=== PATIENT | female | born 1970 | race Caucasian/White ===

== ENCOUNTER → 2022-10-04 13:30 | Outpatient (BNVA) | payer OTHER, SELFPAY | PROVIDERS: PCP Physician Assistant Medical; Visit Provider Anesthesiology ==

== ENCOUNTER 2022-11-09 05:56 | Outpatient (REF) | payer OTHER, SELFPAY ==
--- NOTE | ~2022-11-09 | FL_ITS ---
EXAMINATION: XR FLUOROSCOPY WITH IMAGES CLINICAL INFORMATION: Sacrococcygeal disorders, not elsewhere classified COMPARISON: None available. TECHNIQUE: Fluoroscopy Supervised By: Dr. Castrejon. Fluoroscopy Time: 0.2 minutes. Cumulative Dose: 15.2 mGy. DAP: 0.265 Gycm2. Images: 2. FINDINGS: Images demonstrate needle placement and contrast injection of the bilateral sacroiliac joints FL/FL guidance in treatment room IMPRESSION: Fluoroscopy guidance for sacroiliac joint injection
== END 2022-11-09 05:57 | disposition home or self-care (01) ==
LOC: CF 05:56
PROVIDERS: Visit Provider Anesthesiology
DX: M46.1 Sacroiliitis, not elsewhere classified (principal); M53.3 Sacrococcygeal disorders, not elsewhere classified; M47.819 Spondylosis without myelopathy or radiculopathy, site unspecified; M96.1 Postlaminectomy syndrome, not elsewhere classified; E66.01 Morbid (severe) obesity due to excess calories
CPT/HCPCS: 27096; J2795; J3301; Q9965; Q9967

== ENCOUNTER → 2022-11-11 08:22 | Outpatient (BNVA) | payer OTHER, SELFPAY | PROVIDERS: PCP Physician Assistant Medical; Visit Provider Anesthesiology ==

== ENCOUNTER 2025-04-29 13:08 | Outpatient (REF) | payer OTHER, SELFPAY ==
[2025-04-29 15:22] LABS: Alanine Aminotransferase 34 U/L (0-31); Albumin Level 4.7 g/dL (3.5-5.0); Alkaline Phosphatase 89 U/L (39-117); Aspartate Amino Transferase 34 U/L (5-31); Lipase 23 U/L (8-78); Total Protein 7.3 g/dL (6.5-8.0)
[2025-04-29 15:38] LABS: Folate 8.0 ng/mL (> or = 4.0); Vitamin B12 219 pg/mL (200-900)
[2025-04-29 17:57] LABS: Free T4 (Free Thyroxine) 0.69 ng/dL (0.71-1.85)
[2025-05-03 11:43] LABS: Vitamin D 25-OH, D2 <4 ng/mL; Vitamin D 25-OH, D3 8 ng/mL; Vitamin D 25-OH, Total 8 ng/mL (30-100)
== END 2025-04-29 13:09 | disposition home or self-care (01) ==
LOC: HO.LAB 13:08
PROVIDERS: PCP Physician Assistant Medical; Visit Provider Nurse Practitioner Family
DX: Z12.11 Encounter for screening for malignant neoplasm of colon (principal); K59.1 Functional diarrhea; K21.9 Gastro-esophageal reflux disease without esophagitis; R10.13 Epigastric pain; R14.0 Abdominal distension (gaseous); R74.01 Elevation of levels of liver transaminase levels; E55.9 Vitamin D deficiency, unspecified; Z83.3 Family history of diabetes mellitus; Z13.1 Encounter for screening for diabetes mellitus
CPT/HCPCS: 36415; 80076; 82306; 82607; 82746; 83036; 83690; 84439; 84443; 86364

== ENCOUNTER 2025-04-29 13:08 | Outpatient (AMB) | payer OTHER, SELFPAY ==
--- NOTE | 2025-04-29 13:15 | MHC.OFFVIS ---
Vital Signs 04/29/25 13:26 Height 5 ft 2 in Weight 250 lb BMI 45.7 BP 146/84 H Blood Pressure Location Rt brachial Position Sitting Pulse 70 Pulse Source Pulse Oximeter Pulse Oximetry (%) 97 Oxygen Delivery Method Room Air Intake Visit Reasons: chronic diarrhea, colo screen Intake Note: New pt for initial eval of IBS + recall colo screening. Last colo 2014 w/ Dr. Chaudhry. Hyperplastic polypectomy. CC: C/O IBS - D related concerns. Pt reports having frequent BMs, diarrhea, gas + abd cramping. Pt also reports a hx of GERD but states that it has not bothered her recently and she does not take medication for it. She does report taking imodium during the week to allow her to attend work w/o severe GI episodes. [employer] Required: No Accompanied by: Self / Same As Patient Allergies cat dander (CAT) Allergy (Unknown, Verified 11/11/22 08:38) DIFF BREATHING, ASTHMA cortisone Allergy (Verified 11/11/22 08:38) Unknown HPI HPI chronic diarrhea, colo screen: Details: 55 year old? female with past medical history of asthma, and anxiety, GERD, hypertension is here today for pre colonoscopy screening.? Patient was sent to us by her PCP.? Colonoscopy in the past [address] Chaudhry. Patient reports postprandial diarrhea. Patient denies any cardiac or respiratory symptoms, however patient has a admitting counselor and she sees her in [place] Patient reports that she takes Imodium every day in order for her to make it through at work. Patient denies any melena, hematochezia. Denies any family history of CRC.? Patient also reports epigastric pain postprandially. Used to take PPI, currently is not taking any medications to help with reflux. Denies history of difficulty with sedation or anesthesia in the past.? No history of infectious? diseases like hepatitis A, B, C, HIV or tuberculosis.? Patient is not on any anticoagulation [facility] Medical History (Updated 05/12/25 @ 15:43 by Lindsay Gonzales [facility]-) Asthma Anxiety GERD (gastroesophageal reflux disease) HTN (hypertension) Morbid obesity Surgical History H/O colonoscopy History of cervical biopsy Review of Systems Const Denies weight gain and Denies weight loss ENT Reports no additional complaints, Denies dysphagia and Denies odynophagia Card Reports no additional complaints Resp Reports no additional complaints GI Reports abdominal pain, Denies belching, Denies melena, Reports bloating, Denies change in bowel habits, Denies dysphagia, Denies excessive flatus, Denies dyspepsia, Reports heartburn, Denies diarrhea, Reports loose stools, Denies nausea, Denies odynophagia and Denies vomiting Reports no additional complaints Musc Reports no additional complaints Neuro Reports no additional complaints Psych Reports no additional complaints Endo Reports no additional complaints Physical Exam Vital Signs: Last Vital Signs Pulse 70 04/29/25 13:26 BP 146/84 H 04/29/25 13:26 Pulse Ox 97 04/29/25 13:26 Oxygen Delivery Method Room Air 04/29/25 13:26 BMI result Body Mass Index 45.7 Const General: healthy appearing and no acute distress Nutritional Appearance: obese Orientation/consciousness: patient oriented x3 Resp Effort & Inspection: normal respiratory effort, able to speak in complete sentences, no tracheal deviation and symmetric chest movement Auscultation: clear to auscultation bilaterally Cardio Rate: regular rate GI Inspection: Yes normal to inspection, No distended and Yes obesity Palpation (GI): Soft to palpation, not firm, nontender and No hepatosplenomegaly present Auscultation: normal bowel sounds General: Yes no CVA tenderness Back/Spine/Pelvis Back: no CVA tenderness Skin General skin exam: elasticity normal, turgor normal and dry skin Neuro General: patient oriented x3 Psych Appearance: grossly normal Mental Status: mental status grossly normal Assessment & Plan Assessment & Plan (1) Screen for colon cancer: Code(s): Z12.11 - Encounter for screening for malignant neoplasm of colon (2) GERD (gastroesophageal reflux disease): Code(s): K21.9 - Gastro-esophageal reflux disease without esophagitis Category: Medical Qualifiers: Esophagitis presence: esophagitis presence not specified Qualified Code(s): K21.9 - Gastro-esophageal reflux disease without esophagitis (3) Diarrhea: Code(s): R19.7 - Diarrhea, unspecified Qualifiers: Diarrhea type: functional diarrhea Qualified Code(s): K59.1 - Functional diarrhea (4) Postprandial epigastric pain: Code(s): R10.13 - Epigastric pain (5) Postprandial abdominal bloating: Code(s): R14.0 - Abdominal distension (gaseous) Plan Patient denies any cardiac or respiratory symptoms.? Denies any issues with anesthesia in the past.? Patient reports postprandial diarrhea. Patient was encouraged to try [id number] fiber with pre and probiotic. Patient will be also sent for upper endoscopy. Patient reports epigastric pain postprandially in all occasional reflux. Will check thyroid, liver panel, vitamin-D, B12, folate, A1c, lipase and transglutaminase. Patient will start taking pantoprazole daily. Patient may take sucralfate at bedtime. No history infectious diseases in the past or present.? Not on any anticoagulation therapy.? No family history of colon cancer..? Patient denies melena, hematochezia, unintentional weight loss or ribbon like stools.? Discussed at length the pre-procedure,? prep, diet & medications as well as what to expect prior, during and after the procedure.?? Stressed the importance of good bowel prep.? Recommended the use of Vaseline or Calmoseptine OTC & baby wipes with bowel movements to promote comfort.? ?Patient verbalizes understanding and agrees to plan of care.? She was given the opportunity to ask questions and all questions answered.? We will see her after the procedure.? Patient sees admitting counselor in [place] phone number [phone] Albert Casanova MD Orders: Orders TSH reflex Free T4 04/29/25 K59.00 - Constipation, unspecified Liver Panel 04/29/25 R74.01 - Elevation of levels of liver transaminase levels Vitamin D 25-OH (D2 and D3) 04/29/25 E55.9 - Vitamin D deficiency, unspecified Hemoglobin A1c 04/29/25 Z83.3 - Family history of diabetes mellitus Transglutaminase IgA 04/29/25 R10.9 - Unspecified abdominal pain Lipase 04/29/25 R10.9 - Unspecified abdominal pain Vitamin B12 and Folate 04/29/25 R19.7 - Diarrhea, unspecified Referrals GI Procedure Notification Z12.11 - Encounter for screening for malignant neoplasm of colon, K21.9 - Gastro-esophageal reflux disease without esophagitis, R10.13 - Epigastric pain Medications: New sucralfate 10 mL PO BEDTIME 400 mL 3RF K21.9 - Gastro-esophageal reflux disease without esophagitis bisacodyl (Dulcolax (bisacodyl)) Start taking 2 tablet every night 7 days before the procedure and 1 day before procedure take 4 tablets at noon time followed by MiraLax prep 10 mg (2 x 5 mg) PO BEDTIME 16 tabs 0RF Z12.11 - Encounter for screening for malignant neoplasm of colon polyethylene glycol 3350 (Miralax) As directed by gastroenterology department at [facility] 238 grams PO ONCE 238 grams 0RF Z12.11 - Encounter for screening for malignant neoplasm of colon pantoprazole 20 mg PO DAILY 30 tabs 3RF Coding Level of Care Code New Pt Level 4 (81420) Diagnoses Screen for colon cancer Z12.11 Gastroesophageal reflux disease, unspecified whether esophagitis present K21.9 Esophagitis presence: esophagitis presence not specified Functional diarrhea K59.1 Diarrhea type: functional diarrhea Postprandial epigastric pain R10.13 Postprandial abdominal bloating R14.0 Time Spent (min) 50 Comment 35 minutes spent with patient and additional 15 minutes spent reviewing her records
[2025-04-29 13:26] VITALS: BP 146/84; PULSE 70; O2SAT 97; BMI 45.7
--- OUTSIDE RECORDS SUMMARY | 2025-04-29 16:50 | XMS_ITS | Clinical Summary ---
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 Name Role Phone Unavailable Primary Care Provider Unavailabl e Social History Tobacco Use Types Packs/Day Years Used Date Smoking Tobacco: Never Assessed Comments Unknown Sex and Gender Information Value Date Recorded Sex Assigned at Not on file Legal Sex Female 12:38 PM EDT Gender Identity Not on file Sexual Orientation Not on file Plan of Treatment Health Maintenance Due Date Last Done Comments Hepatitis C Virus Screening 1968 HIV Screening 1981 DTaP/Tdap/Td Vaccines (1 - Tdap) 1987 Hepatitis B Vaccines (1 of 3 - 19+ 3-dose series) 03/31 Pneumococcal Vaccines 50+ (1 of 1 - PCV) 2018 Zoster (Shingles) Vaccine (1 of 2) 2018 COVID-19 Vaccine (1 - season) 2025 RSV Vaccine 50 years and old er and Patients (1 - 1-dose 75+ series) 2043
--- OUTSIDE RECORDS SUMMARY | 2025-04-29 16:50 | XMS_ITS ---
Author Name [facility] Organization Unknown Problems Problem Status Onset Date Problem Type Date of Resoluti on Source Deviated nasal septum active EncounterDiagnosisAct [facility] Nasal polyps active EncounterDiagnosisAct [facility]
== END 2025-04-29 14:11 | disposition home or self-care (01) ==
LOC: HO.HGI 13:09
PROVIDERS: PCP Physician Assistant Medical; Visit Provider Nurse Practitioner Family
DX: Z01.818 Encounter for other preprocedural examination (principal); Z12.11 Encounter for screening for malignant neoplasm of colon; K59.1 Functional diarrhea; R10.13 Epigastric pain; K21.9 Gastro-esophageal reflux disease without esophagitis; R14.0 Abdominal distension (gaseous)
CPT/HCPCS: 99204